=== PATIENT | male | born 1955 | race Caucasian/White ===

== ENCOUNTER 2017-08-04 14:42 | Inpatient (IN) | payer MEDICAID, OTHER ==
[2017-08-04] MEDS: ONDANSETRON 4 MG INJ IV (16:23)
[2017-08-04] MEDS: HYDROmorphONE 0.5 MG/0.5 ML SYG IV (16:23)
[2017-08-04 16:31] LABS: ADD MAN DIFF? NO
[2017-08-04 16:37] LABS: WHITE BLOOD COUNT 8.6 10^3/ul (4.8-10.8)
[2017-08-04 16:37] LABS: ABNORMAL IP MESSAGE 1; BASOPHILS % 0.2 % (0.0-2.0); EOSINOPHILS % 0.1 % (0.0-7.0); HEMATOCRIT 45.4 % (42.0-52.0); HEMOGLOBIN 16.2 g/dl (14.0-18.0); LYMPHOCYTES # 0.5 10^3/ul (0.8-2.9); LYMPHOCYTES % 6.3 % (15.0-51.0); MEAN CORPUSCULAR HEMOGLOBIN 32.8 pg (29.0-33.0); MEAN CORPUSCULAR HGB CONC 35.7 g/dl (32.0-37.0); MEAN CORPUSCULAR VOLUME 91.9 fl (82.0-101.0); MEAN PLATELET VOLUME 9.5 fl (7.4-10.4); MONOCYTE # 0.3 10^3/ul (0.3-0.9); MONOCYTES % 3.5 % (0.0-11.0); NEUTROPHIL # 7.7 10^3/ul (1.6-7.5); NEUTROPHILS % 89.7 % (39.0-77.0); PLATELET COUNT 192 10^3/UL (140-415); POSITIVE DIFF @See below; RED BLOOD COUNT 4.94 10^6/ul (4.70-6.10); RED CELL DISTRIBUTION WIDTH 12.5 % (11.5-14.5)
[2017-08-04 16:57] LABS: ALANINE AMINOTRANSFERASE 27 IU/L (13-69); ALBUMIN 4.7 g/dl (3.3-4.9); ALBUMIN/GLOBULIN RATIO 1.17; ALKALINE PHOSPHATASE 182 IU/L (42-121); ANION GAP 16 (8-16); ASPARTATE AMINO TRANSFERASE 24 IU/L (15-46); BLOOD UREA NITROGEN 11 mg/dl (7-20); CALCIUM 9.7 mg/dl (8.4-10.2); CARBON DIOXIDE 26 mmol/L (21-31); CHLORIDE 102 mmol/L (97-110); CREATININE 0.55 mg/dl (0.61-1.24); ETHANOL < 10.0 mg/dl; GLUCOSE 330 mg/dl (70-220); LIPASE 60 U/L (23-300); POTASSIUM 4.2 mmol/L (3.5-5.1); SODIUM 140 mmol/L (135-144); TOTAL PROTEIN 8.7 g/dl (6.1-8.1)
[2017-08-04] MEDS: PIPER-TAZO 3.375 GM IV (PMX) 100 ML IVPB (18:02)
[2017-08-04] MEDS ORDERED: ONDANSETRON 4 MG INJ IV (22:30)
[2017-08-04] MEDS ORDERED: GLUCAGON 1 MG INJ IM (23:00)
[2017-08-04] MEDS ORDERED: GLUCOSE GEL 15 GRAM TUBE BUCCAL (23:00)
[2017-08-04] MEDS ORDERED: DEXTROSE 50% 50 ML SYRINGE IV ×2 (23:00)
[2017-08-04] MEDS ORDERED: GLUCOSE GEL 15 GRAM TUBE PO ×2 (23:00)
[2017-08-04] MEDS: D5W-0.45 NACL + KCL 20 MEQ 1,000 ML IV (23:15)
[2017-08-04] MEDS: morphine 2 MG INJ IV (23:18)
[2017-08-04] MEDS: INSULIN ASPART [NOVOLOG] 3 ML PEN SC (23:32)
[2017-08-05] MEDS: ACCU-CHEK XX (02:07)
[2017-08-05 05:14] LABS: ADD MAN DIFF? NO
[2017-08-05 05:26] LABS: WHITE BLOOD COUNT 8.2 10^3/ul (4.8-10.8)
[2017-08-05 05:26] LABS: BASOPHILS % 0.2 % (0.0-2.0); EOSINOPHILS % 0.2 % (0.0-7.0); HEMATOCRIT 42.7 % (42.0-52.0); LYMPHOCYTES # 0.7 10^3/ul (0.8-2.9); MEAN CORPUSCULAR HGB CONC 35.1 g/dl (32.0-37.0); MEAN CORPUSCULAR VOLUME 94.1 fl (82.0-101.0); MEAN PLATELET VOLUME 9.9 fl (7.4-10.4); MONOCYTE # 0.7 10^3/ul (0.3-0.9); MONOCYTES % 8.1 % (0.0-11.0); NEUTROPHIL # 6.7 10^3/ul (1.6-7.5); NEUTROPHILS % 82.3 % (39.0-77.0); PLATELET COUNT 193 10^3/UL (140-415); RED BLOOD COUNT 4.54 10^6/ul (4.70-6.10); RED CELL DISTRIBUTION WIDTH 13.1 % (11.5-14.5)
[2017-08-05 05:38] LABS: ALANINE AMINOTRANSFERASE 30 IU/L (13-69); ALBUMIN/GLOBULIN RATIO 1.33; ALKALINE PHOSPHATASE 129 IU/L (42-121); ANION GAP 15 (8-16); ASPARTATE AMINO TRANSFERASE 22 IU/L (15-46); BILIRUBIN,INDIRECT 1.3 mg/dl (0-1.1); BILIRUBIN,TOTAL 1.3 mg/dl (0.2-1.3); BLOOD UREA NITROGEN 13 mg/dl (7-20); CALCIUM 8.7 mg/dl (8.4-10.2); CARBON DIOXIDE 27 mmol/L (21-31); CHLORIDE 101 mmol/L (97-110); CREATININE 0.56 mg/dl (0.61-1.24); GLUCOSE 293 mg/dl (70-220); POTASSIUM 4.2 mmol/L (3.5-5.1); SODIUM 139 mmol/L (135-144)
[2017-08-05] MEDS: morphine 2 MG INJ IV ×2 (06:09→20:11)
[2017-08-05] MEDS: INSULIN ASPART [NOVOLOG] 3 ML PEN SC ×5 (06:12→20:53)
[2017-08-05 07:18] LABS: HEMOGLOBIN A1C 13.3 % (0-5.9)
[2017-08-05] MEDS: FAMOTIDINE 20 MG INJ IV ×2 (09:01→20:55)
[2017-08-05] MEDS: D5W-0.45 NACL + KCL 20 MEQ 1,000 ML IV (13:03)
[2017-08-05] MEDS ORDERED: INSULIN GLARGINE [LANtus] 3 ML PEN SC ×2 (20:00)
[2017-08-05] MEDS: INSULIN DETEMIR [LEVEMIR] 3ML CART SC (20:53)
[2017-08-06] MEDS: morphine 2 MG INJ IV ×4 (00:52→17:55)
[2017-08-06] MEDS: INSULIN ASPART [NOVOLOG] 3 ML PEN SC ×6 (01:00→20:42)
[2017-08-06] MEDS: ACCU-CHEK XX (01:47)
[2017-08-06] MEDS: D5W-0.45 NACL + KCL 20 MEQ 1,000 ML IV ×3 (03:39→19:19)
[2017-08-06 05:25] LABS: ADD MAN DIFF? NO
[2017-08-06 05:39] LABS: BASOPHILS % 0.4 % (0.0-2.0); EOSINOPHILS # 0.1 10^3/ul (0.0-0.5); EOSINOPHILS % 1.8 % (0.0-7.0); HEMATOCRIT 41.7 % (42.0-52.0); HEMOGLOBIN 14.3 g/dl (14.0-18.0); LYMPHOCYTES # 0.9 10^3/ul (0.8-2.9); LYMPHOCYTES % 16.9 % (15.0-51.0); MEAN CORPUSCULAR HEMOGLOBIN 32.9 pg (29.0-33.0); MEAN CORPUSCULAR HGB CONC 34.3 g/dl (32.0-37.0); MEAN CORPUSCULAR VOLUME 96.1 fl (82.0-101.0); MEAN PLATELET VOLUME 9.8 fl (7.4-10.4); MONOCYTE # 0.5 10^3/ul (0.3-0.9); MONOCYTES % 9.3 % (0.0-11.0); NEUTROPHIL # 3.6 10^3/ul (1.6-7.5); NEUTROPHILS % 71.4 % (39.0-77.0); PLATELET COUNT 177 10^3/UL (140-415); RED BLOOD COUNT 4.34 10^6/ul (4.70-6.10)
[2017-08-06 06:52] LABS: ANION GAP 9 (8-16); BLOOD UREA NITROGEN 14 mg/dl (7-20); CALCIUM 8.3 mg/dl (8.4-10.2); CARBON DIOXIDE 26 mmol/L (21-31); CHLORIDE 106 mmol/L (97-110); CREATININE 0.59 mg/dl (0.61-1.24); GLUCOSE 171 mg/dl (70-220); POTASSIUM 3.8 mmol/L (3.5-5.1); SODIUM 137 mmol/L (135-144)
[2017-08-06] MEDS: FAMOTIDINE 20 MG INJ IV ×2 (09:10→20:37)
[2017-08-06] MEDS: INSULIN DETEMIR [LEVEMIR] 3ML CART SC ×2 (09:10→20:34)
[2017-08-06] MEDS: CEPASTAT LOZENGE MT ×2 (19:08→20:37)
[2017-08-07] MEDS: INSULIN ASPART [NOVOLOG] 3 ML PEN SC ×6 (01:00→21:00)
[2017-08-07] MEDS: ACCU-CHEK XX (01:27)
[2017-08-07 06:29] LABS: ANION GAP 10 (8-16); BLOOD UREA NITROGEN 12 mg/dl (7-20); CALCIUM 8.2 mg/dl (8.4-10.2); CARBON DIOXIDE 27 mmol/L (21-31); CHLORIDE 105 mmol/L (97-110); CREATININE 0.62 mg/dl (0.61-1.24); GLUCOSE 121 mg/dl (70-220); POTASSIUM 3.7 mmol/L (3.5-5.1); SODIUM 138 mmol/L (135-144)
[2017-08-07] MEDS: CEPASTAT LOZENGE MT (08:46)
[2017-08-07] MEDS: FAMOTIDINE 20 MG INJ IV ×2 (08:46→21:45)
[2017-08-07] MEDS: INSULIN DETEMIR [LEVEMIR] 3ML CART SC ×2 (08:50→21:44)
[2017-08-07] MEDS: D5W-0.45 NACL + KCL 20 MEQ 1,000 ML IV (08:53)
[2017-08-07] MEDS: metFORMIN 500 MG TAB PO (18:48)
[2017-08-08] MEDS: ACCU-CHEK XX (01:57)
[2017-08-08 05:22] LABS: ADD MAN DIFF? NO
[2017-08-08 05:31] LABS: WHITE BLOOD COUNT 4.7 10^3/ul (4.8-10.8)
[2017-08-08 05:31] LABS: BASOPHILS % 0.4 % (0.0-2.0); EOSINOPHILS # 0.1 10^3/ul (0.0-0.5); EOSINOPHILS % 1.3 % (0.0-7.0); HEMOGLOBIN 14.3 g/dl (14.0-18.0); LYMPHOCYTES # 1.5 10^3/ul (0.8-2.9); LYMPHOCYTES % 30.9 % (15.0-51.0); MEAN CORPUSCULAR HEMOGLOBIN 33.3 pg (29.0-33.0); MEAN CORPUSCULAR HGB CONC 34.9 g/dl (32.0-37.0); MEAN CORPUSCULAR VOLUME 95.3 fl (82.0-101.0); MEAN PLATELET VOLUME 9.4 fl (7.4-10.4); MONOCYTE # 0.4 10^3/ul (0.3-0.9); NEUTROPHIL # 2.7 10^3/ul (1.6-7.5); PLATELET COUNT 189 10^3/UL (140-415); RED CELL DISTRIBUTION WIDTH 12.1 % (11.5-14.5)
[2017-08-08 05:45] LABS: ANION GAP 15 (8-16); BLOOD UREA NITROGEN 8 mg/dl (7-20); CALCIUM 8.6 mg/dl (8.4-10.2); CARBON DIOXIDE 27 mmol/L (21-31); CHLORIDE 100 mmol/L (97-110); CREATININE 0.57 mg/dl (0.61-1.24); GLUCOSE 78 mg/dl (70-220); POTASSIUM 3.6 mmol/L (3.5-5.1); SODIUM 138 mmol/L (135-144)
[2017-08-08] MEDS: INSULIN ASPART [NOVOLOG] 3 ML PEN SC ×4 (07:50→18:52)
[2017-08-08] MEDS: [UNRECOGNIZED DRUG - REMARK] XX (08:26)
[2017-08-08] MEDS: LINAGLIPTIN 5 MG TABLET PO (08:26)
[2017-08-08] MEDS: FAMOTIDINE 20 MG INJ IV (08:26)
[2017-08-08] MEDS: metFORMIN 500 MG TAB PO ×2 (08:26→18:47)
== END 2017-08-08 19:00 | disposition home or self-care (01) | DRG 390 ==
LOC: E/R 14:42 → MS1 18:26
DX: K56.600 Partial intestinal obstruction, unspecified as to cause (principal); K43.9 Ventral hernia without obstruction or gangrene; E11.65 Type 2 diabetes mellitus with hyperglycemia; I51.7 Cardiomegaly; K59.00 Constipation, unspecified; Z79.4 Long term (current) use of insulin; Z87.891 Personal history of nicotine dependence; Z90.49 Acquired absence of other specified parts of digestive tract
CPT/HCPCS: 36415; 71045; 74019; 74176; 80048; 80053; 80307; 82962; 83036; 83690; 85025; 96374; 96375; 99285-25

== ENCOUNTER 2018-09-18 12:39 | Emergency (ER) | payer SELFPAY, MEDICAID | END 2018-09-18 13:04 | disposition home or self-care (01) | LOC: E/R 12:39 | DX: L03.032 Cellulitis of left toe (principal); Z79.4 Long term (current) use of insulin | CPT/HCPCS: 99283 ==

== ENCOUNTER 2018-10-08 10:50 | Emergency (ER) | payer SELFPAY ==
[2018-10-08] MEDS: IBUPROFEN 800 MG TAB PO (11:31)
== END 2018-10-08 11:59 | disposition home or self-care (01) ==
LOC: FTE 11:59
DX: K00.7 Teething syndrome (principal); H61.22 Impacted cerumen, left ear
CPT/HCPCS: 69209; 99283-25